=== PATIENT | female | born 1970 | race Caucasian/White ===

== ENCOUNTER 2016-08-17 16:20 | Emergency (ER) | payer OTHER ==
--- NOTE | ~2016-08-17 | CR72 ---
[facility] A Service of [facility] & [facility] RADIOLOGY TEXT RESULTS PATIENT: VERONICA CORRALES LOCATION: [facility] : 72 UNIT #: [id number] AGE: [address]: Alejandro Henson MD SEX: F ORDER DR: [id number] [facility] [address] [place], [place] [address] [id number] E MR#: [id number] Acc #: [id number] NAME: VERONICA CORRALES : 1970 SEX: F STUDY DATE/TIME: 08/17/2016 17:49 UNIT: [facility] ROOM: STUDY DESCRIPTION: CR Chest Single View Portable Attending Physician: Alejandro Henson M.D. Ordering Physician: [facility] Primary Care Physician: Beth Rodriguez M.D. MEDICAL IMAGING REPORT This report is preliminary unless electronic signature is present EXAM Portable chest INDICATIONS Arrhythmia and labile hypertension today. TECHNIQUE Frontal view chest. COMPARISON 08/07/2015. FINDINGS Heart size is stable. No dense consolidation, pleural fluid or pneumothorax. IMPRESSION No active process. Stable mild cardiomegaly. Dictated by... Melchor Gutierrez M.D. THIS IS AN ELECTRONICALLY VERIFIED REPORT Melchor Gutierrez M.D. at 08/18/2016 2:30 PM EED/pcl TD: 08/17/2016 23:23 JOB #: [id number] MEDICAL IMAGING REPORT Page 1 of 1 COPY
--- NOTE | ~2016-08-17 | EKG ---
PATIENT: VERONICA CORRALES UNIT #: [id number] Ventricular Rate: 79 BPM Atrial Rate: 79 BPM P-R Interval: 140 ms QRS Duration: 90 ms Q-T Interval: 386 ms QTC Calculation(Bezet): 442 ms P [place]: 32 degrees Calculated R [place]: 25 degrees Calculated T [place]: 10 degrees Diagnosis Line: Normal sinus rhythm Diagnosis Line: Poor R wave progression questionable lead position Diagnosis Line: or body habitus Diagnosis Line: Borderline ECG Diagnosis Line: When compared with ECG of 07-AUG-2015 21:12, Diagnosis Line: No significant change was found Diagnosis Line: Confirmed by RG ISRAEL MD ([id number]) on Diagnosis Line: 08/17/2016 10:23:24 PM INTERPRETING : BHAVANA
[~2016-08-17 16:20] MED LIST: CARDIZEM CD180 M1 PO; FOLIC ACID1 MG PO; HUMALOG100 U/ML SUBQ; HYDROCHLOROTH12.5 M1 PO; HYDROCODON-ACE1 EACH PO; LEVEMIR SUBQ; NORFLEX100 M1 PO; PRAVACHOL20 MG PO; PRILOSEC20 M1 PO; PROVENTIL4 MG INH; SYNTHROID PO; TOPROL XL PO; TRICOR145 MG PO
[2016-08-17 17:52] LABS: BASOPHIL# 0.1 X10e3 (0-0.3); BASOPHIL% 0.9 % (0-2.5); EOSINOPHIL# 0.1 X10e3 (0-0.7); EOSINOPHIL% 1.1 % (0.0-7.0); HEMATOCRIT 42.6 % (35.0-45.0); HEMOGLOBIN 14.1 gm/dL (12.0-16.0); LYMPHOCYTE# 1.5 X10e3 (1.0-3.5); LYMPHOCYTE% 13.4 % (17.0-45.0); MEAN CELL VOLUME 80.6 FL (83-96); MEAN CORPUSCULAR HEMOGLOBIN 26.7 PG (28-34); MEAN CORPUSCULAR HGB CONC 33.1 g/dL (30-36); MEAN PLATELET VOLUME 8.7 FL (6.5-11.5); MONOCYTE# 0.6 X10e3 (0-1.0); MONOCYTE% 5.6 % (3.0-12.0); NEUTROPHIL# 9.1 X10e3 (1.5-7.1); PLATELET COUNT 383 X10e3 (140-420); RED BLOOD COUNT 5.29 X10e (3.90-5.30); RED CELL DISTRIBUTION WIDTH 14.3 % (11.0-15.5); WHITE BLOOD COUNT 11.5 X10e3 (4.0-10.5)
[2016-08-17 17:54] LABS: DIFF IND NO
[2016-08-17 18:07] LABS: URINE SOURCE CLEAN CATCH
[2016-08-17 18:12] LABS: URINE APPEARANCE CLOUDY; URINE BILIRUBIN NEG (NEG); URINE BLOOD 3+ (NEG); URINE COLOR YELLOW; URINE GLUCOSE >1000 MG/DL (NEG); URINE KETONE TRACE (NEG); URINE LEUKOCYTE ESTERASE 1+ (NEG); URINE NITRATE NEG (NEG); URINE PROTEIN 1+ (NEG); URINE SPECIFIC GRAVITY 1.024 (1.003-1.035)
[2016-08-17 18:15] LABS: CULTURE INDICATED? YES; URINE BACTERIA AUWI 1+ (NEGATIVE); URINE SQUAMOUS EPITHELIAL CELL OCC /[HPF]
[2016-08-17 18:21] LABS: POC - TROPONIN <0.05 ng/mL (<=0.05)
[2016-08-17 18:24] LABS: ALBUMIN SERUM 4.4 g/dL (3.5-5.0); ALKALINE PHOSPHATASE 58 U/L (32-92); ALT (SGPT) 37 U/L (10-40); AST (SGOT) 25 U/L (10-42); BILIRUBIN,TOTAL 0.8 mg/dL (0.2-2.0); BLOOD UREA NITROGEN 16 mg/dL (9-23); BUN/CREATININE RATIO 22.85; CALCIUM SERUM 9.6 mg/dL (8.4-10.2); CARBON DIOXIDE 21 mmol/L (22-31); CHLORIDE 105 mmol/L (100-111); CREATININE SERUM 0.7 mg/dL (0.6-1.4); GLOM FILT RATE Estimated 105.4 mL/min (>60); GLUCOSE FASTING 147 mg/dL (70-110); PROTEIN TOTAL SERUM 8.4 g/dL (6.0-8.3); SODIUM 135 mmol/L (135-145)
[2016-08-17 18:25] LABS: BILIRUBIN, DIRECT <0.1 mg/dL (0.0-0.2); BILIRUBIN,INDIRECT 0.7 mg/dL (0.0-0.9)
== END 2016-08-17 19:14 | disposition home or self-care (01) ==
LOC: CED 16:20
PROVIDERS: Emergency Medicine
DX: R00.2 Palpitations (principal); E11.9 Type 2 diabetes mellitus without complications; Z79.4 Long term (current) use of insulin; F17.200 Nicotine dependence, unspecified, uncomplicated
CPT/HCPCS: 36415; 71010; 80048; 80076; 81003; 82553; 82947; 84443; 84484; 84703; 85025; 87086; 93005; 99283

== ENCOUNTER 2016-10-11 23:03 | Emergency (ER) | payer OTHER ==
[~2016-10-11] VITALS: Ht 157.5 cm; Wt 90.7 kg
--- NOTE | ~2016-10-11 | EKG ---
PATIENT: VERONICA CORRALES UNIT #: [id number] Ventricular Rate: 83 BPM Atrial Rate: 83 BPM P-R Interval: 130 ms QRS Duration: 92 ms Q-T Interval: 402 ms QTC Calculation(Bezet): 472 ms P [place]: 42 degrees Calculated R [place]: 41 degrees Calculated T [place]: 9 degrees Diagnosis Line: Normal sinus rhythm Diagnosis Line: Normal ECG Diagnosis Line: Diagnosis Line: Confirmed by NIGEL IVY MD ([id number]) on Diagnosis Line: 10/12/2016 2:02:40 PM INTERPRETING MD: BIJU CAMILO
--- NOTE | ~2016-10-11 | CR72 ---
[facility] A Service of [facility] RADIOLOGY TEXT RESULTS PATIENT: VERONICA CORRALES LOCATION: [facility] : 72 UNIT #: [id number] AGE: [address]: Kristopher Thompson MD SEX: F ORDER DR: [id number] [facility] [address] [place], [place] [address] [id number] E MR#: [id number] Acc #: [id number] NAME: VERONICA CORRALES : 1970 SEX: F STUDY DATE/TIME: 10/12/2016 1:19 UNIT: [facility] ROOM: STUDY DESCRIPTION: CR Chest Single View Portable Attending Physician: Kristopher Thompson M.D. Ordering Physician: Kristopher Thompson M.D. Primary Care Physician: Beth Rodriguez M.D. MEDICAL IMAGING REPORT This report is preliminary unless electronic signature is present EXAM AP portable chest. DATE 10/12/2016 HISTORY 45-year-old female with chest pain and hypertension since this morning. Diabetes. Smoking history. COMPARISON AP portable chest, 08/17/2016. FINDINGS A single AP portable view of the chest shows both lungs to be clear. The heart is normal in size. The mediastinal contour is normal. No significant bone abnormalities are seen. IMPRESSION Normal portable chest. Dictated by... Priya Grace M.D. THIS IS AN ELECTRONICALLY VERIFIED REPORT Priya Grace M.D. at 10/12/2016 9:51 PM [facility]/gary TD: 10/12/2016 10:00 JOB #: [id number] [facility] A Service [facility] RADIOLOGY TEXT RESULTS PATIENT: VERONICA CORRALES LOCATION: [facility] : 72 UNIT #: [id number] AGE: [address]: Kristopher Thompson MD SEX: F ORDER DR: MEDICAL IMAGING REPORT Page 1 of 1 COPY
[2016-10-12 01:28] LABS: POC - CKMB 1.4 ng/mL (0.0-7.9); POC - TROPONIN <0.05 ng/mL (<=0.05)
[2016-10-12 01:37] LABS: BASOPHIL# 0.1 X10e3 (0-0.3); EOSINOPHIL# 0.3 X10e3 (0-0.7); EOSINOPHIL% 2.8 % (0.0-7.0); HEMATOCRIT 38.3 % (35.0-45.0); LYMPHOCYTE# 2.2 X10e3 (1.0-3.5); LYMPHOCYTE% 21.9 % (17.0-45.0); MEAN CELL VOLUME 80.4 FL (83-96); MEAN CORPUSCULAR HEMOGLOBIN 27.2 PG (28-34); MEAN CORPUSCULAR HGB CONC 33.8 g/dL (30-36); MEAN PLATELET VOLUME 8.5 FL (6.5-11.5); MONOCYTE# 0.8 X10e3 (0-1.0); MONOCYTE% 7.8 % (3.0-12.0); NEUTROPHIL# 6.8 X10e3 (1.5-7.1); NEUTROPHIL% 66.5 % (40-75); PLATELET COUNT 360 X10e3 (140-420); RED BLOOD COUNT 4.77 X10e (3.90-5.30); RED CELL DISTRIBUTION WIDTH 14.3 % (11.0-15.5); WHITE BLOOD COUNT 10.1 X10e3 (4.0-10.5)
[2016-10-12 01:38] LABS: DIFF IND NO
[2016-10-12 02:08] LABS: ALBUMIN SERUM 4.2 g/dL (3.5-5.0); BILIRUBIN, DIRECT 0.1 mg/dL (0.0-0.2); BILIRUBIN,INDIRECT 0.2 mg/dL (0.0-0.9); BILIRUBIN,TOTAL 0.3 mg/dL (0.2-2.0); CALCIUM SERUM 9.3 mg/dL (8.4-10.2); CREATININE SERUM 0.6 mg/dL (0.6-1.4); GLOM FILT RATE Estimated 110.9 mL/min (>60); POTASSIUM 3.8 mmol/L (3.5-5.1)
== END 2016-10-12 02:05 | disposition home or self-care (01) ==
LOC: CED 23:03
PROVIDERS: Emergency Medicine
DX: R07.9 Chest pain, unspecified (principal); E11.9 Type 2 diabetes mellitus without complications; I10 Essential (primary) hypertension; E03.9 Hypothyroidism, unspecified
CPT/HCPCS: 36415; 71010; 80048; 80076; 82553; 84484; 85025; 93005; 99285